=== PATIENT | male | born 1960 | race African-American/Black ===

== ENCOUNTER 2016-11-10 16:56 | Emergency (ER) | payer MEDICAID ==
[~2016-11-10] VITALS: Ht 193 cm; Wt 113.4 kg
[~2016-11-10 16:56] MED LIST: ADVAIR 500-501 EACH INH; ALBUTEROL SULF8.5 GM INH; AMLODIPINE BESY10 MG ORAL; ATROVENT HFA12.9 GM INH; AZITHROMYCIN250 MG ORAL; AZITHROMYCIN250 MG PO; BENTYL10 MG ORAL; CIPRO500 MG PO; CYCLOBENZAPRINE10 MG ORAL; ETODOLAC500 MG PO; FLOVENT2 PUFF2 INH; GUAIFENESIN-CO118 M1 ORAL; GUIATUSS AC SY120 ML ORAL; IBUPROFEN600 MG ORAL; MEDROL DOSEPAK4 MG ORAL; NAPROSYN500 M1 ORAL; NORCO 5-325 TA1 EACH ORAL; PREDNISONE20 MG ORAL; PREDNISONE20 MG PO; PREDNISONE50 MG ORAL; PROAIR HFA8.5 GM INH; PROMETHAZI6.25 MG/1 ORAL; PROMETHAZINE-C118 M1 ORAL; SINGULAIR10 MG ORAL; SYMBICORT 80-10.2 G1 IH; ZANTAC150 MG ORAL; ZOFRAN ODT4 MG ORAL; [UNRECOGNIZED DRUG - REMARK]
[2016-11-10 18:30] VITALS: BP 129/76
[2016-11-10 18:53] LABS: ALANINE AMINOTRANSFERASE 46 U/L (3-41); ALBUMIN/GLOBULIN RATIO 1.3 (1.0-2.7); ANION GAP 17 (5-15); ASPARTATE AMINO TRANSFERASE 28 U/L (5-40); BASOPHILS % (AUTO) 2.8 % (0.0-2.0); CALCIUM 10.2 mg/dL (8.6-10.2); CARBON DIOXIDE 28 mEQ/L (20-30); CHLORIDE 94 mEQ/L (98-107); CREATININE 1.2 mg/dL (0.7-1.2); EOSINOPHILS % (AUTO) 5.5 % (0.0-3.0); GLOMERULAR FILTRATION RATE > 60 mL/min (>60); HEMOLYSIS 6; LIPASE 38 U/L (< 60); LYMPHOCYTES % (AUTO) 40.6 % (20.0-45.0); MEAN CORPUSCULAR HEMOGLOBIN 30.3 PG (27.0-31.0); MEAN CORPUSCULAR HGB CONC 33.1 G/DL (32.0-36.0); MEAN CORPUSCULAR VOLUME 91 FL (80-99); MEAN PLATELET VOLUME 8.8 FL (6.5-10.1); MONOCYTES % (AUTO) 8.7 % (1.0-10.0); NEUTROPHILS % (AUTO) 42.4 % (45.0-75.0); PLATELET COUNT 259 K/UL (150-450); POTASSIUM 3.5 mEQ/L (3.4-4.9); RED BLOOD COUNT 5.28 M/UL (4.70-6.10); RED CELL DISTRIBUTION WIDTH 11.3 % (11.6-14.8); SODIUM 139 mEQ/L (135-145); TOTAL PROTEIN 7.9 g/dL (6.6-8.7); WHITE BLOOD COUNT 6.7 K/UL (4.8-10.8)
[2016-11-10 19:09] LABS: APPEARANCE,URINE CLEAR; KETONES,URINE NEGATIVE (NEGATIVE); LEUKOCYTE ESTERASE ,URINE 1+ (NEGATIVE); NITRITE,URINE NEGATIVE (NEGATIVE); PH,URINE 6 (4.5-8.0); PROTEIN,URINE 1+ (NEGATIVE); UROBILINOGEN,URINE NORMAL MG/DL (0.0-1.0)
[2016-11-10 19:47] LABS: BACTERIA,URINE FEW /HPF; RBC,URINE 0-2 /HPF (0 - 0)
[2016-11-10] MEDS ORDERED: REGLAN10 MG ORAL (19:50)
[2016-11-10 20:09] VITALS: BP 118/74
[2016-11-10 20:10] VITALS: BP 118/74
--- NOTE | 2016-11-11 13:30 | Emergency Room Report ---
History of Present Illness General Chief Complaint: General Complaint Source: Patient Present Illness HPI The patient is a 56-year-old male presenting for nausea, vomiting, and diarrhea which began 3 days prior. The patient was seen in this emergency department and diagnosed with gastroenteritis. The patient states that he ate doughnuts which had mold growing on them by mistake and then developed these symptoms. The patient was discharged home with a prescription for Zofran and Mylanta which he states have mildly been working. The patient does state that the diarrhea and vomiting are decreasing day by day. The patient now describes abdominal pain as an 8/10 dull ache and only occurs with either vomiting or diarrhea. The patient denies fever, chills, shortness of breath, chest pain, dizziness, fatigue, melena, hematochezia, hematemesis Allergies: Uncoded Allergies: Dye (Adverse Reaction, Intermediate, Shortness of Breath, 04/24/13) Patient History Past Medical History: see triage record Pertinent Family History: none Reviewed Nursing Documentation: PMH: Agreed, PSxH: Agreed Nursing Documentation-PMH Past Medical History: No History, Except For Hx Hypertension: Yes Hx Asthma: Yes Hx Diabetes: Yes Review of Systems All Other Systems: negative except mentioned in HPI Physical Exam Vital Signs Date Time Temp Pulse Resp B/P Pulse Ox O2 Delivery O2 Flow Rate FiO2 11/10/16 17:38 98.2 85 19 129/76 99 Room Air Sp02 EP Interpretation: reviewed, normal General Appearance: no apparent distress, alert, GCS 15, non-toxic Head: normocephalic, atraumatic Eyes: bilateral eye PERRL, bilateral eye normal inspection ENT: hearing grossly normal, normal pharynx, no angioedema, normal voice Neck: full range of motion, supple/symm/no masses Respiratory: chest non-tender, lungs clear, normal breath sounds, speaking full sentences Cardiovascular #1: regular rate, rhythm, no edema Cardiovascular #2: 2+ carotid (R), 2+ carotid (L), 2+ radial (R), 2+ radial (L) , 2+ dorsalis pedis (R), 2+ dorsalis pedis (L) Gastrointestinal: soft, non-distended, no guarding, no rebound, abnormal bowel sounds - hyperactive, tenderness - epigastric Rectal: deferred Genitourinary: normal inspection, no CVA tenderness Musculoskeletal: back normal, gait/station normal, normal range of motion, non- tender Neurologic: alert, oriented x3, responsive, motor strength/tone normal, sensory intact, speech normal Psychiatric: judgement/insight normal, memory normal, mood/affect normal, no suicidal/homicidal ideation Reflexes: 3+ bicep (R), 3+ bicep (L), 3+ tricep (R), 3+ tricep (L), 3+ knee (R) , 3+ knee (L) Skin: normal color, no rash, warm/dry, well hydrated Lymphatic: no adenopathy Medical Decision Making PA Attestation Dr. Beavers is my supervising physician. Patient management was discussed with my supervising physician Diagnostic Impression: Primary Impression: Gastroenteritis ER Course The patient is a 56-year-old male presenting for nausea, vomiting, and diarrhea which began 3 days prior. Differential diagnoses considered include but not limited to gastroenteritis, pancreatitis, appendicitis, UTI PE: Vitals WNL. NAD. Abdomen: Normal appearance. Non distended. No ecchymosis. No McBurney point tenderness. No guarding. There are hyperactive bowel sounds and epigastric tenderness to palpation No CVA tenderness Labs: CBC and CMP are unremarkable. No leukocytosis or electrolyte abnormality. Urinalysis unremarkable The patient was given IV fluids and Zofran and is feeling better. The patient will be discharged home and Zofran will be changed to Reglan. ER precautions are given. Laboratory Tests Test 11/10/16 18:20 11/10/16 18:40 White Blood Count 6.7 K/UL (4.8-10.8) Red Blood Count 5.28 M/UL (4.70-6.10) Hemoglobin 16.0 G/DL (14.2-18.0) Hematocrit 48.2 % (42.0-52.0) Mean Corpuscular Volume 91 FL (80-99) Mean Corpuscular Hemoglobin 30.3 PG (27.0-31.0) Mean Corpuscular Hemoglobin Concent 33.1 G/DL (32.0-36.0) Red Cell Distribution Width 11.3 % (11.6-14.8) L Platelet Count 259 K/UL (150-450) Mean Platelet Volume 8.8 FL (6.5-10.1) Neutrophils (%) (Auto) 42.4 % (45.0-75.0) L Lymphocytes (%) (Auto) 40.6 % (20.0-45.0) Monocytes (%) (Auto) 8.7 % (1.0-10.0) Eosinophils (%) (Auto) 5.5 % (0.0-3.0) H Basophils (%) (Auto) 2.8 % (0.0-2.0) H Sodium Level 139 mEQ/L (135-145) Potassium Level 3.5 mEQ/L (3.4-4.9) Chloride Level 94 mEQ/L (98-107) L Carbon Dioxide Level 28 mEQ/L (20-30) Anion Gap 17 (5-15) H Blood Urea Nitrogen 14 mg/dL (7-23) Creatinine 1.2 mg/dL (0.7-1.2) Estimate Glomerular Filtration Rate > 60 mL/min (>60) Glucose Level 179 mg/dL (74-106) H Calcium Level 10.2 mg/dL (8.6-10.2) Total Bilirubin 0.2 mg/dL (0.0-1.2) Aspartate Amino Transferase (AST) 28 U/L (5-40) Alanine Aminotransferase (ALT) 46 U/L (3-41) H Alkaline Phosphatase 79 U/L (40-129) Total Protein 7.9 g/dL (6.6-8.7) Albumin 4.6 g/dL (3.5-5.2) Globulin 3.3 g/dL Albumin/Globulin Ratio 1.3 (1.0-2.7) Lipase 38 U/L (< 60) Urine Color Yellow Urine Appearance Clear Urine pH 6 (4.5-8.0) Urine Specific [place] 1.015 (1.005-1.035) Urine Protein 1+ (NEGATIVE) H Urine Glucose (UA) Negative (NEGATIVE) Urine Ketones Negative (NEGATIVE) Urine Occult Blood Negative (NEGATIVE) Urine Nitrite Negative (NEGATIVE) Urine Bilirubin Negative (NEGATIVE) Urine Urobilinogen Normal MG/DL (0.0-1.0) Urine Leukocyte Esterase 1+ (NEGATIVE) H Urine RBC 0-2 /HPF (0 - 0) H Urine WBC 2-4 /HPF (0 - 0) Urine Squamous Epithelial Cells None /LPF (NONE/OCC) Urine Bacteria Few /HPF (NONE) Lab Results Impression CBC and CMP are unremarkable. No leukocytosis or electrolyte abnormality. Urinalysis unremarkable Last Vital Signs Date Time Temp Pulse Resp B/P Pulse Ox O2 Delivery O2 Flow Rate FiO2 11/10/16 20:10 98.2 80 20 118/74 99 Room Air Status: improved Disposition: HOME, SELF-CARE Condition: Improved Scripts Metoclopramide Hcl* (REGLAN*) 10 Mg Tablet 10 MG ORAL THREE TIMES A DAY, #15 TAB Prov: ELOINA BULL 11/10/16 Patient Instructions: Viral Gastroenteritis, Adult Additional Instructions: I discussed my findings with the patient. All questions and concerns have been answered. Treatment and medication compliance have been addressed. I advised the patient that they need to follow up with PMD in 3-5 days. Return to ED if symptoms worsen, new symptoms arise, or if needed for any reason. Patient verbalized understanding of discharge instructions. ELOINA BULL Nov 11, 2016 13:30
== END 2016-11-10 20:11 | disposition home or self-care (01) ==
LOC: EMR 18:00
DX: K52.9 Noninfective gastroenteritis and colitis, unspecified (principal); R11.2 Nausea with vomiting, unspecified; R19.7 Diarrhea, unspecified; R10.9 Unspecified abdominal pain; I10 Essential (primary) hypertension; E11.9 Type 2 diabetes mellitus without complications; J45.909 Unspecified asthma, uncomplicated
CPT/HCPCS: 36415; 80053; 81003; 83690; 85025; 96361; 96374; 99284; J2405

== ENCOUNTER 2016-11-14 20:09 | Emergency (ER) | payer MEDICAID ==
[~2016-11-14] VITALS: Ht 193 cm; Wt 113.4 kg
[~2016-11-14 20:09] MED LIST changes: +REGLAN10 MG ORAL
[2016-11-14 21:14] VITALS: BP 139/89
[2016-11-14 21:29] LABS: BASOPHILS % (AUTO) 2.3 % (0.0-2.0); EOSINOPHILS % (AUTO) 6.5 % (0.0-3.0); LYMPHOCYTES % (AUTO) 39.9 % (20.0-45.0); MEAN CORPUSCULAR HGB CONC 33.1 G/DL (32.0-36.0); MEAN CORPUSCULAR VOLUME 91 FL (80-99); MEAN PLATELET VOLUME 8.8 FL (6.5-10.1); MONOCYTES % (AUTO) 11.2 % (1.0-10.0); NEUTROPHILS % (AUTO) 40.2 % (45.0-75.0); PLATELET COUNT 240 K/UL (150-450); RED CELL DISTRIBUTION WIDTH 11.9 % (11.6-14.8); WHITE BLOOD COUNT 7.1 K/UL (4.8-10.8)
[2016-11-14 21:54] LABS: ALANINE AMINOTRANSFERASE 43 U/L (3-41); ALBUMIN/GLOBULIN RATIO 1.4 (1.0-2.7); ANION GAP 12 (5-15); ASPARTATE AMINO TRANSFERASE 26 U/L (5-40); CARBON DIOXIDE 29 mEQ/L (20-30); CHLORIDE 96 mEQ/L (98-107); CREATININE 1.2 mg/dL (0.7-1.2); GLOMERULAR FILTRATION RATE > 60 mL/min (>60); HEMOLYSIS 11; POTASSIUM 3.2 mEQ/L (3.4-4.9); SODIUM 137 mEQ/L (135-145); TOTAL PROTEIN 6.9 g/dL (6.6-8.7)
[2016-11-14] MEDS ORDERED: IMODIUM2 MG ORAL (22:28)
[2016-11-14 22:48] VITALS: BP 129/80
--- NOTE | 2016-11-15 09:32 | Diagnostic Imaging Report ---
Indication: Abdominal pain Technique: Continuous helical transaxial imaging of the abdomen and pelvis was obtained from the lung bases to the pubic symphysis. No intravenous contrast was administered. Coronal 2-D reformats were also obtained. Total Dose length Product (DLP): [address] Dose Index Volume (CTDIvol): 19 mGy Comparison: none Findings: There is small mass projecting off the posterior aspect of the right kidney. This is nonspecific on noncontrast imaging and could be cystic or solid. Arterial vascular consultations are present. Tiny gallstone noted. The liver is low in attenuation. Lung bases are clear. No free fluid seen. Appendix is normal. Few diverticula noted in the sigmoid colon. Impression: Fatty liver Gallstone Nonspecific bilateral renal masses. These could be cystic or solid and incompletely assessed on the current study done without contrast Normal appendix Diverticulosis of the colon Dr. Diana has communicated the preliminary results to the Emergency Department. There are no significant discrepancies. The CT scanner at [facility] is accredited by the [employer] and the scans are performed using protocols designed to limit radiation exposure to as low as reasonably achievable to attain images of sufficient resolution adequate for diagnostic evaluation.
--- NOTE | 2016-11-15 23:05 | Emergency Room Report ---
History of Present Illness General Chief Complaint: Abdominal Pain Source: Patient Present Illness HPI The pt is a 56 yo M who is presenting for the 3rd time in one week for nausea, vomiting, abdominal pain, and diarrhea. The pt states he ate old doughnuts one week prior and developed this symptoms afterwords. The pt states he has 9/10 dull abdominal pain with diarrhea and vomiting. The pt states the episodes of vomiting and diarrhea are decreasing daily and he has had two episodes of diarrhea today with no vomiting. The pt states he is able to tolerate liquids and foods but this seems to trigger the symptoms. The pt denies melena, hematochezia, hematemesis, fever, chills, FLOWERS, myalgia, fatigue, dizziness, SOB, CP Allergies: Uncoded Allergies: Dye (Adverse Reaction, Intermediate, Shortness of Breath, 04/24/13) Patient History Past Medical History: see triage record Pertinent Family History: none Reviewed Nursing Documentation: PMH: Agreed, PSxH: Agreed Nursing Documentation-PMH Past Medical History: No History, Except For Hx Hypertension: Yes Hx Asthma: Yes Hx Diabetes: Yes Review of Systems All Other Systems: negative except mentioned in HPI Physical Exam Vital Signs Date Time Temp Pulse Resp B/P Pulse Ox O2 Delivery O2 Flow Rate FiO2 11/14/16 20:31 97.7 87 14 147/99 100 Room Air Sp02 EP Interpretation: reviewed, normal General Appearance: no apparent distress, alert, GCS 15, non-toxic Head: normocephalic, atraumatic Eyes: bilateral eye PERRL, bilateral eye normal inspection ENT: hearing grossly normal, normal pharynx, no angioedema, normal voice Respiratory: chest non-tender, lungs clear, normal breath sounds, speaking full sentences Cardiovascular #1: regular rate, rhythm, no edema Gastrointestinal: soft, non-distended, no guarding, no rebound, abnormal bowel sounds - hyperactive, tenderness - epigastric Genitourinary: normal inspection, no CVA tenderness Musculoskeletal: back normal, gait/station normal, normal range of motion, non- tender Neurologic: alert, oriented x3, responsive, motor strength/tone normal, sensory intact, speech normal Psychiatric: judgement/insight normal, memory normal, mood/affect normal, no suicidal/homicidal ideation Skin: normal color, no rash, warm/dry, well hydrated Medical Decision Making PA Attestation Dr. Benz is my supervising physician. Patient management was discussed with my supervising physician Diagnostic Impression: Primary Impression: Gastroenteritis ER Course The pt is a 56 yo M who is presenting for the 3rd time in one week for nausea, vomiting, abdominal pain, and diarrhea. Differential diagnoses considered include but not limited to gastroenteritis, pancreatitis, appendicitis, cholecystitis PE: Vitals WNL. NAD. Abdomen: Normal appearance. Non distended. No ecchymosis. Hyperactive BS. +TTP over epigastric region. No McBurney point tenderness. No guarding. No CVA tenderness CT abd/pelvis done without contrast as patient is allergic. Nonspecific bilateral renal masses. Normal appendix Diverticulosis of the colon These results were discussed with patient and the patient will call tomorrow for finalized radiology results. Pt given IV fluids and zofran and is feeling better. Because the symptoms have persisted, the pt is given prescription for Lomotil and will FU with PMD. Pt told he needs to FU with GI if symptoms persist. Laboratory Tests Test 11/14/16 21:13 White Blood Count 7.1 K/UL (4.8-10.8) Red Blood Count 5.20 M/UL (4.70-6.10) Hemoglobin 15.6 G/DL (14.2-18.0) Hematocrit 47.2 % (42.0-52.0) Mean Corpuscular Volume 91 FL (80-99) Mean Corpuscular Hemoglobin 30.0 PG (27.0-31.0) Mean Corpuscular Hemoglobin Concent 33.1 G/DL (32.0-36.0) Red Cell Distribution Width 11.9 % (11.6-14.8) Platelet Count 240 K/UL (150-450) Mean Platelet Volume 8.8 FL (6.5-10.1) Neutrophils (%) (Auto) 40.2 % (45.0-75.0) L Lymphocytes (%) (Auto) 39.9 % (20.0-45.0) Monocytes (%) (Auto) 11.2 % (1.0-10.0) H Eosinophils (%) (Auto) 6.5 % (0.0-3.0) H Basophils (%) (Auto) 2.3 % (0.0-2.0) H Sodium Level 137 mEQ/L (135-145) Potassium Level 3.2 mEQ/L (3.4-4.9) L Chloride Level 96 mEQ/L (98-107) L Carbon Dioxide Level 29 mEQ/L (20-30) Anion Gap 12 (5-15) Blood Urea Nitrogen 18 mg/dL (7-23) Creatinine 1.2 mg/dL (0.7-1.2) Estimate Glomerular Filtration Rate > 60 mL/min (>60) Glucose Level 275 mg/dL (74-106) H Calcium Level 9.0 mg/dL (8.6-10.2) Total Bilirubin 0.3 mg/dL (0.0-1.2) Aspartate Amino Transferase (AST) 26 U/L (5-40) Alanine Aminotransferase (ALT) 43 U/L (3-41) H Alkaline Phosphatase 68 U/L (40-129) Total Protein 6.9 g/dL (6.6-8.7) Albumin 4.1 g/dL (3.5-5.2) Globulin 2.8 g/dL Albumin/Globulin Ratio 1.4 (1.0-2.7) Lab Results Impression CBC, CMP unremarkable CT/MRI/US Diagnostic Results CT/MRI/US Diagnostic Results : Imaging Test Ordered: CT abd/pelvis Impression Nonspecific bilateral renal masses. These could be cystic or solid and incompletely assessed on the current study done without contrast Normal appendix Diverticulosis of the colon Last Vital Signs Date Time Temp Pulse Resp B/P Pulse Ox O2 Delivery O2 Flow Rate FiO2 11/14/16 22:48 97.9 79 15 129/80 100 Room Air Status: improved Disposition: HOME, SELF-CARE Condition: Improved Scripts Loperamide HCl (Loperamide) 2 Mg Capsule 2 MG ORAL Q4H, #12 CAP 0 Refills Prov: ELOINA BULL 11/14/16 [facility] Patient Instructions: Nausea and Vomiting, Adult, Rehydration, Adult, Food Choices to Help Relieve Diarrhea, Adult Additional Instructions: I discussed my findings with the patient. All questions and concerns have been answered. Treatment and medication compliance have been addressed. I advised the patient that they need to follow up with PMD in 3-5 days. Return to ED if symptoms worsen, new symptoms arise, or if needed for any reason. Patient verbalized understanding of discharge instructions. The patient is advised he needs to followup with primary care physician and possibly GI specialist if symptoms continue ELOINA BULL Nov 15, 2016 23:05
== END 2016-11-14 22:49 | disposition home or self-care (01) ==
LOC: EMR 20:48
DX: K52.9 Noninfective gastroenteritis and colitis, unspecified (principal); E11.9 Type 2 diabetes mellitus without complications; J45.909 Unspecified asthma, uncomplicated; I10 Essential (primary) hypertension
CPT/HCPCS: 36415; 74176; 80053; 85025; 96374

== ENCOUNTER 2016-11-26 20:14 | Emergency (ER) | payer MEDICAID ==
[~2016-11-26] VITALS: Ht 193 cm; Wt 108.9 kg
[~2016-11-26 20:14] MED LIST changes: +IMODIUM2 MG ORAL
--- NOTE | 2016-11-26 20:36 | Emergency Room Report ---
History of Present Illness General Chief Complaint: Abdominal Pain Source: Patient Present Illness HPI Patient presents with left upper quadrant pain. He was seen for this on November 14. Had a CAT scan that was basically unremarkable at that time. He was given medication. He was told to followup with his GI specialist. His doctor is unavailable at to do so without medical records and there's been some delay in getting these. This is the copy of the CT: Impression: Fatty liver Gallstone Nonspecific bilateral renal masses. These could be cystic or solid and incompletely assessed on the current study done without contrast Normal appendix Diverticulosis of the colon The patient states the pain is persisting. He's had some vomiting. Denies any fevers or chills. There's been no coffee grounds or blood. He denies any melena. There is no dysuria. In addition to that he is complaining of some sharp pains in his heart. The patient is a diabetic. He claims that he's lost about 10 pounds is not eating well at this time. Allergies: Uncoded Allergies: Dye (Adverse Reaction, Intermediate, Shortness of Breath, 04/24/13) Patient History Past Medical History: see triage record Social History: Denies: alcohol use, drug use, smoking Social History Narrative at home Reviewed Nursing Documentation: PMH: Agreed, PSxH: Agreed Nursing Documentation-PMH Past Medical History: No History, Except For Hx Hypertension: Yes Hx Asthma: Yes Hx Diabetes: Yes Review of Systems All Other Systems: negative except mentioned in HPI Physical Exam Vital Signs Date Time Temp Pulse Resp B/P Pulse Ox O2 Delivery O2 Flow Rate FiO2 11/26/16 20:19 97.5 84 14 124/72 100 Room Air Sp02 EP Interpretation: reviewed, normal General Appearance: well appearing, no apparent distress, GCS 15 Head: normocephalic Eyes: bilateral eye PERRL, bilateral eye normal inspection ENT: moist mucus membranes Neck: supple Respiratory: lungs clear, normal breath sounds Cardiovascular #1: regular rate, rhythm Cardiovascular #2: 2+ radial (R) Gastrointestinal: normal inspection, normal bowel sounds, no mass, non- distended, no guarding, no rebound, tenderness - epigastric Musculoskeletal: back normal, gait/station normal, normal range of motion Neurologic: alert, oriented x3, grossly normal Psychiatric: mood/affect normal Skin: normal inspection, warm/dry Medical Decision Making Diagnostic Impression: Primary Impression: abdominal pain Additional Impressions: Hypokalemia Chest pain Qualified Codes: R07.9 - Chest pain, unspecified ER Course Patient with continued abdominal pain post normal CT 11/14. DDx: gastritis, diverticulitis, PUD, pancreatitis, brian amongst others. Also with sharp chest pain which needs evaluation. Labs, EKG ordered. Will treat with IV hydration, zofran and pepcid. Ct has been reviewed. Labs sig for normal WBC, lipase and UA. Potassium slightly low. Improved with treatment. Chest pain atypical. No medical emergency at this time. Given documents and labs. Stable for outpatient observation and treatment. Discussed need for GI evaluation. Laboratory Tests Test 11/26/16 20:32 11/26/16 20:40 Urine Color Pale yellow Urine Appearance Clear Urine pH 6 (4.5-8.0) Urine Specific [place] 1.015 (1.005-1.035) Urine Protein Negative (NEGATIVE) Urine Glucose (UA) 2+ (NEGATIVE) H Urine Ketones Negative (NEGATIVE) Urine Occult Blood Negative (NEGATIVE) Urine Nitrite Negative (NEGATIVE) Urine Bilirubin Negative (NEGATIVE) Urine Urobilinogen Normal MG/DL (0.0-1.0) Urine Leukocyte Esterase Negative (NEGATIVE) White Blood Count 7.1 K/UL (4.8-10.8) Red Blood Count 5.13 M/UL (4.70-6.10) Hemoglobin 16.2 G/DL (14.2-18.0) Hematocrit 46.8 % (42.0-52.0) Mean Corpuscular Volume 91 FL (80-99) Mean Corpuscular Hemoglobin 31.6 PG (27.0-31.0) H Mean Corpuscular Hemoglobin Concent 34.6 G/DL (32.0-36.0) Red Cell Distribution Width 11.7 % (11.6-14.8) Platelet Count 271 K/UL (150-450) Mean Platelet Volume 8.6 FL (6.5-10.1) Neutrophils (%) (Auto) 45.9 % (45.0-75.0) Lymphocytes (%) (Auto) 36.3 % (20.0-45.0) Monocytes (%) (Auto) 9.7 % (1.0-10.0) Eosinophils (%) (Auto) 6.0 % (0.0-3.0) H Basophils (%) (Auto) 2.1 % (0.0-2.0) H Sodium Level 139 mEQ/L (135-145) Potassium Level 3.1 mEQ/L (3.4-4.9) L Chloride Level 94 mEQ/L (98-107) L Carbon Dioxide Level 31 mEQ/L (20-30) H Anion Gap 14 (5-15) Blood Urea Nitrogen 16 mg/dL (7-23) Creatinine 1.2 mg/dL (0.7-1.2) Estimate Glomerular Filtration Rate > 60 mL/min (>60) Glucose Level 189 mg/dL (74-106) H Calcium Level 9.7 mg/dL (8.6-10.2) Total Bilirubin 0.2 mg/dL (0.0-1.2) Aspartate Amino Transferase (AST) 27 U/L (5-40) Alanine Aminotransferase (ALT) 47 U/L (3-41) H Alkaline Phosphatase 77 U/L (40-129) Total Protein 7.9 g/dL (6.6-8.7) Albumin 4.8 g/dL (3.5-5.2) Globulin 3.1 g/dL Albumin/Globulin Ratio 1.5 (1.0-2.7) Lipase 44 U/L (< 60) EKG Diagnostic Results Rate: normal Rhythm: NSR ST Segments: no acute changes Rhythm Strip Diag. Results EP Interpretation: yes Rhythm: NSR, no PVC's, no ectopy Last Vital Signs Date Time Temp Pulse Resp B/P Pulse Ox O2 Delivery O2 Flow Rate FiO2 11/26/16 22:51 97.5 74 16 115/62 100 Room Air Status: improved Disposition: HOME, SELF-CARE Condition: Improved Scripts Ondansetron Odt* (ZOFRAN ODT*) 4 Mg Tab.rapdis 4 MG ORAL Q8H Y for Nausea & Vomiting, #10 TAB 1 Refill Prov: Ramsey Mims M.D. 11/26/16 Tramadol Hcl* (ULTRAM*) 50 Mg Tablet 50 MG ORAL Q6H Y for For Pain, #14 TAB 0 Refills Prov: Ramsey Mims M.D. 11/26/16 Famotidine (PEPCID) 20 Mg Tablet 20 MG ORAL DAILY, #30 TAB 0 Refills Prov: Ramsey Mims M.D. 11/26/16 Ramsey Mims M.D. Nov 26, 2016 20:36
[2016-11-26] MEDS ORDERED: Famotidine 20 MG/ 2ML VIAL IVP ONE (20:45)
[2016-11-26 20:58] LABS: BASOPHILS % (AUTO) 2.1 % (0.0-2.0); LYMPHOCYTES % (AUTO) 36.3 % (20.0-45.0); MEAN CORPUSCULAR HEMOGLOBIN 31.6 PG (27.0-31.0); MEAN CORPUSCULAR HGB CONC 34.6 G/DL (32.0-36.0); MEAN CORPUSCULAR VOLUME 91 FL (80-99); MEAN PLATELET VOLUME 8.6 FL (6.5-10.1); MONOCYTES % (AUTO) 9.7 % (1.0-10.0); NEUTROPHILS % (AUTO) 45.9 % (45.0-75.0); PLATELET COUNT 271 K/UL (150-450); RED BLOOD COUNT 5.13 M/UL (4.70-6.10); RED CELL DISTRIBUTION WIDTH 11.7 % (11.6-14.8); WHITE BLOOD COUNT 7.1 K/UL (4.8-10.8)
[2016-11-26 21:06] LABS: APPEARANCE,URINE CLEAR; KETONES,URINE NEGATIVE (NEGATIVE); LEUKOCYTE ESTERASE ,URINE NEGATIVE (NEGATIVE); NITRITE,URINE NEGATIVE (NEGATIVE); PH,URINE 6 (4.5-8.0); PROTEIN,URINE NEGATIVE (NEGATIVE); UROBILINOGEN,URINE NORMAL MG/DL (0.0-1.0)
[2016-11-26 21:29] LABS: ALANINE AMINOTRANSFERASE 47 U/L (3-41); ALBUMIN/GLOBULIN RATIO 1.5 (1.0-2.7); ANION GAP 14 (5-15); ASPARTATE AMINO TRANSFERASE 27 U/L (5-40); CALCIUM 9.7 mg/dL (8.6-10.2); CARBON DIOXIDE 31 mEQ/L (20-30); CHLORIDE 94 mEQ/L (98-107); CREATININE 1.2 mg/dL (0.7-1.2); GLOMERULAR FILTRATION RATE > 60 mL/min (>60); HEMOLYSIS 3; LIPASE 44 U/L (< 60); POTASSIUM 3.1 mEQ/L (3.4-4.9); SODIUM 139 mEQ/L (135-145); TOTAL PROTEIN 7.9 g/dL (6.6-8.7)
[2016-11-26 21:38] VITALS: BP 111/58
[2016-11-26] MEDS ORDERED: ZOFRAN ODT4 MG ORAL (22:32)
[2016-11-26] MEDS ORDERED: TRAMADOL HCL50 MG ORAL (22:32)
[2016-11-26] MEDS ORDERED: PEPCID20 MG ORAL (22:32)
[2016-11-26 22:51] VITALS: BP 115/62
--- NOTE | 2017-01-03 03:15 | Cardiology Report ---
APPROVED REPORT EKG Measurement Heart [id number] Normal sinus rhythm Nonspecific T wave abnormality Abnormal ECG
== END 2016-11-26 22:54 | disposition home or self-care (01) ==
LOC: EMR 20:52
DX: R10.12 Left upper quadrant pain (principal); R07.9 Chest pain, unspecified; E87.6 Hypokalemia; E11.9 Type 2 diabetes mellitus without complications; I10 Essential (primary) hypertension; J45.909 Unspecified asthma, uncomplicated
CPT/HCPCS: 36415; 80053; 81003; 83690; 85025; 93005; 96374; 96375; 99284; J2405; S0028

== ENCOUNTER 2017-02-01 17:03 | Emergency (ER) | payer MEDICAID ==
[~2017-02-01] VITALS: Ht 193 cm; Wt 111.6 kg
[~2017-02-01 17:03] MED LIST changes: +PEPCID20 MG ORAL; +TRAMADOL HCL50 MG ORAL
[2017-02-01] MEDS ORDERED: HYDROCHLOROTH12.5 M2 ORAL (17:24)
[2017-02-01 17:36] VITALS: BP 144/88
[2017-02-01] MEDS ORDERED: IBUPROFEN600 MG ORAL (18:50)
[2017-02-01] MEDS ORDERED: AMOXICILLIN500 MG ORAL (18:50)
[2017-02-01 19:04] VITALS: BP 141/84
--- NOTE | 2017-02-01 19:04 | Emergency Room Report ---
History of Present Illness General Chief Complaint: Multiple Trauma/Fall Source: Patient Present Illness HPI Patient is a 57-year-old male presented after a fall reportedly at [facility] the patient stated he fell and hit the back of his head as well as his low back. Patient fell from a seated position. He reports having a headache as well as some left-sided neck pain. Pain to the low back and the left side. The patient was complaining of a mild headache and dizziness. He denied loss of consciousness. Allergies: Uncoded Allergies: Dye (Adverse Reaction, Intermediate, Shortness of Breath, 04/24/13) Patient History Past Medical History: see triage record Reviewed Nursing Documentation: PMH: Agreed, PSxH: Agreed Nursing Documentation-PMH Hx Hypertension: Yes Hx Asthma: Yes Hx Diabetes: Yes Review of Systems All Other Systems: negative except mentioned in HPI Physical Exam Vital Signs Date Time Temp Pulse Resp B/P Pulse Ox O2 Delivery O2 Flow Rate FiO2 02/01/17 17:17 97.9 95 18 146/93 97 02/01/17 17:36 Room Air Sp02 EP Interpretation: reviewed, normal General Appearance: normal inspection, well appearing, no apparent distress, alert, GCS 15 Head: atraumatic ENT: hearing grossly normal, normal voice, other - nasal swelling Neck: normal inspection, full range of motion, supple, no bony tend, tender lateral Respiratory: normal inspection, lungs clear, normal breath sounds, no respiratory distress, no retraction, no wheezing Cardiovascular #1: regular rate, rhythm, no edema Gastrointestinal: normal inspection, normal bowel sounds, non tender, soft, no guarding, no hernia Genitourinary: no CVA tenderness Musculoskeletal: normal inspection, back normal, normal range of motion Neurologic: normal inspection, alert, oriented x3, responsive, 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 Differential diagnosis included was not limited to neck fracture, CVA, close head injury, syncopal episode, basilar ischemia. The patient was noted to have CT the head read by radiology without evident acute intracranial hemorrhage there is markedly the maxillary sinus disease and post surgical changes noted . The patient was advised to followup with ENT due to severe sinus disease. The patient is advised to follow up with primary care doctor in 1-2 days. Patient is advised to return if any worsening condition or if any changes in status that are concerning. Last Vital Signs Date Time Temp Pulse Resp B/P Pulse Ox O2 Delivery O2 Flow Rate FiO2 02/01/17 17:36 97.7 91 16 144/88 98 Room Air Status: improved Disposition: HOME, SELF-CARE Condition: Stable Scripts Ibuprofen* (MOTRIN*) 600 Mg Tablet 600 MG ORAL Q8H Y for For Pain, #30 TAB 0 Refills Prov: Wilmar Beavers 02/01/17 Amoxicillin* (AMOXIL*) 500 Mg Capsule 500 MG ORAL THREE TIMES A DAY, #21 CAP Prov: Wilmar Beavers 02/01/17 Patient Instructions: Head Injury, Adult, Lumbosacral Strain, Sinusitis, Adult Wilmar Beavers Feb 01, 2017 19:04
[2017-02-01 19:06] VITALS: BP 141/84
--- NOTE | 2017-02-02 10:53 | Diagnostic Imaging Report ---
Indication: PAIN Technique: 3 views of the lumbar spine Comparison: None Findings:There is minimal lumbar scoliotic deformity, may be an artifact of positioning. Bony alignment is otherwise normal. Vertebral body heights are preserved. Disc spaces are preserved. Pedicles are intact. Sacral arches are preserved. Sacroiliac joint spaces are preserved. Impression:Negative
--- NOTE | 2017-02-02 14:57 | Diagnostic Imaging Report ---
Indication: PAIN, headache, status post fall Technique: Continuous helical CT scanning of the head was performed without intravenous contrast material. Axial and coronal 5 mm sections were generated. Radiation dose was minimized using automated exposure control Dose: Total Dose Length Product - DLP [address] Dose Index - CTDIvol(s) 70.38 mGy. Comparison: 09/14/2014 Findings: The ventricular system is normal in size and configuration. There is no shift of midline structures. No abnormal extra-axial fluid collections are noted. There is no evidence of intracerebral bleeding. No other abnormal high or low density areas are noted within the brain. Again demonstrated is evidence of extensive sinus and evidence of prior sinus surgery. There is also evidence of prior supraorbital trauma and surgical repair. Impression: Negative for acute intracranial bleed or mass effect Extensive sinus disease, also previously reported Evident of prior supraorbital surgery This agrees with the preliminary interpretation provided overnight by Dr. White The CT scanner at [facility] is accredited by the [employer] and the scans are performed using protocols designed to limit radiation exposure to as low as reasonably achievable to attain images of sufficient resolution adequate for diagnostic evaluation.
== END 2017-02-01 19:07 | disposition home or self-care (01) ==
LOC: EMR 18:00
DX: R51 Headache (principal); M54.2 Cervicalgia; R42 Dizziness and giddiness; M54.5 Low back pain; W19.XXXA Unspecified fall, initial encounter; Y92.511 Restaurant or cafe as the place of occurrence of the external cause; I10 Essential (primary) hypertension; E11.9 Type 2 diabetes mellitus without complications; J45.909 Unspecified asthma, uncomplicated
CPT/HCPCS: 70450; 72110; 99284

== ENCOUNTER 2017-11-10 22:28 | Emergency (ER) | payer MEDICAID ==
[~2017-11-10] VITALS: Ht 193 cm; Wt 111.6 kg
[~2017-11-10 22:28] MED LIST changes: +AMOXICILLIN500 MG ORAL; +HYDROCHLOROTH12.5 M2 ORAL
[2017-11-10 22:36] VITALS: BP 141/92
[2017-11-10 22:45] VITALS: BP 141/92
[2017-11-10] MEDS ORDERED: HYDROCODON-ACE1 EA15 ORAL (23:14)
[2017-11-10] MEDS ORDERED: ROBAXIN500 MG PO (23:14)
[2017-11-10] MEDS ORDERED: IBUPROFEN600 MG ORAL (23:14)
--- NOTE | 2017-11-10 23:14 | Emergency Room Report ---
History of Present Illness General Chief Complaint: Lower Back Pain or Injury Source: Patient Present Illness HPI Is a 57-year-old male with history of previous fall in January is an he sustained a small laminal tear of the lumbar spine. He beginning rehabilitation and recommended surgery. This was 5 months ago. He put it off. He was visiting family in [place]. He been over and felt a sharp pain in his back. Pain radiating down his right leg. He couldn't walk for 7 days because of the pain. He was taking muscle relaxant felt better. Denies any fever or chills. Denies any tetanus of bowel or urine. Maximal pain was 10 out of 10. Now 7/ 10. No trauma. No fever or chills. Allergies: Uncoded Allergies: Dye (Adverse Reaction, Intermediate, Shortness of Breath, 04/24/13) Patient History Past Medical History: see triage record, old chart reviewed Past Surgical History: none Pertinent Family History: none Social History: Denies: smoking Immunizations: other Reviewed Nursing Documentation: PMH: Agreed, PSxH: Agreed Nursing Documentation-PMH Hx Hypertension: Yes Hx Asthma: Yes Hx Diabetes: Yes Review of Systems Eye: Denies: eye pain, blurred vision ENT: Denies: ear pain, nose congestion, throat swelling Respiratory: Denies: cough, shortness of breath Cardiovascular: Denies: chest pain, palpitations Gastrointestinal: Denies: abdominal pain, diarrhea, nausea, vomiting Musculoskeletal: Reports: back pain, Denies: joint pain Skin: Denies: rash Neurological: Denies: headache, numbness Endocrine: Denies: increased thirst, increased urine Hematologic/Lymphatic: Denies: easy bruising All Other Systems: negative except mentioned in HPI Physical Exam Vital Signs Date Time Temp Pulse Resp B/P (MAP) Pulse Ox O2 Delivery O2 Flow Rate FiO2 11/10/17 22:36 97.5 80 16 141/92 98 Room Air vitals normal Sp02 EP Interpretation: reviewed, normal General Appearance: well appearing, no apparent distress, alert Head: normocephalic, atraumatic Eyes: bilateral eye PERRL, bilateral eye EOMI ENT: hearing grossly normal, normal pharynx Neck: full range of motion, supple, no meningismus Respiratory: chest non-tender, lungs clear, normal breath sounds Cardiovascular #1: regular rate, rhythm, no murmur Gastrointestinal: normal bowel sounds, non tender, no mass, no organomegaly, no bruit, non-distended Musculoskeletal: back normal, gait/station normal, normal range of motion Psychiatric: mood/affect normal Skin: warm/dry Medical Decision Making Diagnostic Impression: Primary Impression: Low back pain Qualified Codes: M54.41 - Lumbago with sciatica, right side ER Course Patient presents with lower back pain with radiation down the right leg. Based on clinical presentation, most likely herniated disc with sciatica. He will need another MRI. No evidence of cauda equina syndrome, spinal epidural abscess or neoplastic process. We'll discharge home. Last Vital Signs Date Time Temp Pulse Resp B/P (MAP) Pulse Ox O2 Delivery O2 Flow Rate FiO2 11/10/17 22:36 97.5 80 16 141/92 98 Room Air Status: improved Disposition: HOME, SELF-CARE Condition: Stable Scripts Methocarbamol* (ROBAXIN*) 500 Mg Tablet 500 MG PO TID, #30 TAB 0 Refills Prov: JEANNINE PAEZ M.D. 11/10/17 Ibuprofen* (MOTRIN*) 600 Mg Tablet 600 MG ORAL THREE TIMES A DAY, #30 TAB 0 Refills Prov: JEANNINE PAEZ M.D. 11/10/17 Hydrocodone/Acetaminophen 5-325* (HYDROCODONE/ACETAMINOPHEN 5-325*) 1 Each Tablet 1 TAB ORAL Q6H Y for For Pain, #30 TAB 0 Refills Prov: JEANNINE PAEZ M.D. 11/10/17 Additional Instructions: Followup with your Dr. in 7 days. Recommend another MRI. Return if symptom worsen. JEANNINE PAEZ M.D. Nov 10, 2017 23:14
== END 2017-11-10 23:20 | disposition home or self-care (01) ==
LOC: EMR 22:50
DX: M54.41 Lumbago with sciatica, right side (principal); J45.909 Unspecified asthma, uncomplicated; E11.9 Type 2 diabetes mellitus without complications; I10 Essential (primary) hypertension
CPT/HCPCS: 99283

== ENCOUNTER 2018-08-17 02:11 | Emergency (ER) | payer MEDICAID ==
[~2018-08-17] VITALS: Ht 193 cm; Wt 110.7 kg
[~2018-08-17 02:11] MED LIST changes: +HYDROCODON-ACE1 EA15 ORAL; +ROBAXIN500 MG PO
[2018-08-17 02:28] VITALS: BP 150/80
[2018-08-17] MEDS ORDERED: Dicyclomine HCl 10mg/5ml oral soln ORAL ONE (02:30)
[2018-08-17] MEDS ORDERED: Lidocaine 2% Visc 15ml soln ORAL ONE (02:30)
[2018-08-17] MEDS ORDERED: Mylanta II UD 30ml ORAL ONE (02:30)
[2018-08-17] MEDS ORDERED: RANITIDINE HCL150 MG ORAL (02:45)
[2018-08-17] MEDS ORDERED: DICYCLOMINE HCL10 MG PO (02:45)
[2018-08-17 02:49] VITALS: BP 150/80
--- NOTE | 2018-08-17 03:27 | Emergency Room Report ---
History of Present Illness General Chief Complaint: Abdominal Pain Source: Patient Present Illness HPI 58-year-old male presents ED complaining of abdominal pain. Started 2 days ago after eating a hotdog at a movie. States he shortly after started feeling cramping pain's abdomen. 8 out of 10, nonradiating. Denies chest pain or shortness of breath. Denies fevers or chills. Denies nausea or vomiting. Denies diarrhea. Tried [id number] medications without relief. No other aggravating relieving factors. Denies any other associated symptoms Allergies: Uncoded Allergies: Dye (Adverse Reaction, Intermediate, Shortness of Breath, 04/24/13) Patient History Past Medical History: DM, HTN, asthma Past Surgical History: none Pertinent Family History: none Social History: Denies: smoking, alcohol use, drug use Immunizations: UTD Reviewed Nursing Documentation: PMH: Agreed; PSxH: Agreed Nursing Documentation-PMH Hx Hypertension: Yes Hx Asthma: Yes Hx Diabetes: Yes - type 2 Review of Systems All Other Systems: negative except mentioned in HPI Physical Exam Vital Signs Date Time Temp Pulse Resp B/P (MAP) Pulse Ox O2 Delivery O2 Flow Rate FiO2 08/17/18 02:17 97.7 88 17 159/90 97 97.7 08/17/18 02:28 Room Air Sp02 EP Interpretation: reviewed, normal General Appearance: no apparent distress, alert, GCS 15, non-toxic Head: normocephalic, atraumatic Eyes: bilateral eye normal inspection, bilateral eye PERRL ENT: hearing grossly normal, normal pharynx, no angioedema, normal voice Neck: full range of motion, supple/symm/no masses Respiratory: chest non-tender, lungs clear, normal breath sounds, speaking full sentences Cardiovascular #1: regular rate, rhythm, no edema Cardiovascular #2: 2+ carotid (R), 2+ carotid (L), 2+ radial (R), 2+ radial (L) , 2+ dorsalis pedis (R), 2+ dorsalis pedis (L) Gastrointestinal: normal bowel sounds, non tender, soft, non-distended, no guarding, no rebound Rectal: deferred Genitourinary: normal inspection, no CVA tenderness Musculoskeletal: back normal, gait/station normal, normal range of motion, non- tender Neurologic: alert, oriented x3, responsive, motor strength/tone normal, sensory intact, speech normal Psychiatric: judgement/insight normal, memory normal, mood/affect normal, no suicidal/homicidal ideation Reflexes: 3+ bicep (R), 3+ bicep (L), 3+ tricep (R), 3+ tricep (L), 3+ knee (R) , 3+ knee (L) Skin: normal color, no rash, warm/dry, well hydrated Lymphatic: no adenopathy Medical Decision Making Diagnostic Impression: Primary Impression: Gastritis Qualified Codes: K29.00 - Acute gastritis without bleeding ER Course Hospital Course 58-year-old M presents to ED with epigastric pain. no nausea or vomiting differential diagnosis: gastritis, SBO, cholecystits Clinical course Patient placed on stretcher. On personnel monitor. After initial history, physical exam reveals middle-aged male in no acute distress. Abdomen soft. No guarding or rebound. Vital stable. Patient appears comfortable. Discussed findings with patient. I do not believe patient requires IV access or blood draw. Patient given GI cocktail, Pepcid here. On reassessment feels better. Asking to be discharged. Safely discharged with close outpatient follow-up I feel this is a highly complex case requiring extensive working including EKG/ Rhythm strip, Xray/CT/US, Blood/urine lab work, repeat exams while in ED, and administration of strong opiates/narcotics for pain control, admission to hospital or close patient follow up. Diagnosis - gastritis Stable and discharged to home with prescriptions for Pepcid, Bentyl. Followup with PMD. Return to ED if symptoms recur or worsen Last Vital Signs Date Time Temp Pulse Resp B/P (MAP) Pulse Ox O2 Delivery O2 Flow Rate FiO2 08/17/18 02:49 98.2 89 16 150/80 98 Room Air 98.2 Status: improved Disposition: HOME, SELF-CARE Condition: Stable Scripts Dicyclomine Hcl* (DICYCLOMINE HCL*) 10 Mg Capsule 10 MG PO QID, #20 CAP Prov: Kermit Ray MD 08/17/18 Ranitidine Hcl* (ZANTAC*) 150 Mg Tablet 150 MG ORAL TWICE A DAY, #30 TAB Prov: Kermit Ray MD 08/17/18 Referrals: [facility],REFERRING (PCP) Patient Instructions: Gastritis, Adult, [id number] Kermit Ray MD Aug 17, 2018 03:27
== END 2018-08-17 03:02 | disposition home or self-care (01) ==
LOC: EMR 02:53
DX: K29.00 Acute gastritis without bleeding (principal); R10.13 Epigastric pain; I10 Essential (primary) hypertension; E11.9 Type 2 diabetes mellitus without complications
CPT/HCPCS: 99283

== ENCOUNTER 2019-01-02 07:05 | Emergency (ER) | payer MEDICAID ==
[~2019-01-02] VITALS: Ht 193 cm; Wt 65.8 kg
[~2019-01-02 07:05] MED LIST changes: +DICYCLOMINE HCL10 MG PO; +RANITIDINE HCL150 MG ORAL
[2019-01-02 07:24] VITALS: BP 131/88
--- NOTE | 2019-01-02 07:26 | NUR ---
ED Nurse Note: pt walked in to ER c/o sore throat 8/10 and coughing for 2 weeks. pt sounds congested. lungs sound clear. pt aao x4 and calm and cooperative. pt has not coughed at ER yet. per pt, he got sputum with cough which started yellow and turned to green and lately clear. skin clean and intact.
[2019-01-02] MEDS ORDERED: IBUPROFEN600 MG ORAL (07:45)
--- NOTE | 2019-01-02 07:45 | Emergency Room Report ---
History of Present Illness General Chief Complaint: Sore Throat Source: Patient Present Illness HPI Patient presented short throat for about 2 weeks. No fever. Occasional cough. No exacerbating or limiting factor. He has been using saltwater gargle with minimum relief. Dull pain. He denies any change in voice. Allergies: Uncoded Allergies: Dye (Adverse Reaction, Intermediate, Shortness of Breath, 04/24/13) Patient History Past Medical History: HTN Pertinent Family History: HTN Nursing Documentation-[facility] Past Medical History: No History, Except For Hx Hypertension: Yes Hx Asthma: Yes Hx Diabetes: Yes - type 2 Review of Systems All Other Systems: negative except mentioned in HPI Physical Exam Vital Signs Date Time Temp Pulse Resp B/P (MAP) Pulse Ox O2 Delivery O2 Flow Rate FiO2 01/02/19 07:11 97.9 92 20 131/88 96 01/02/19 07:24 Room Air General Appearance: well appearing, no apparent distress ENT: hearing grossly normal, no angioedema, normal voice Neck: full range of motion, supple Respiratory: no respiratory distress, speaking full sentences Gastrointestinal: non tender, soft Musculoskeletal: normal inspection, back normal Neurologic: normal inspection, alert, oriented x3 Medical Decision Making Diagnostic Impression: Primary Impression: Sore throat ER Course I considered angioedema, pharyngitis, peritonsillar abscess, epiglottitis. The patient has a normal examination There is no other associated symptoms. Patient will be given ibuprofen for pain. Last Vital Signs Date Time Temp Pulse Resp B/P (MAP) Pulse Ox O2 Delivery O2 Flow Rate FiO2 01/02/19 07:24 97.9 80 20 131/88 96 Room Air Disposition: HOME, SELF-CARE Condition: Stable Scripts Ibuprofen* (MOTRIN*) 600 Mg Tablet 600 MG ORAL Q6H PRN for For Pain, #30 TAB Prov: DENI VAZQUEZ 01/02/19 Patient Instructions: Sore Throat DENI VAZQUEZ Jan 02, 2019 07:45
[2019-01-02 07:50] VITALS: BP 115/74
--- NOTE | 2019-01-02 07:50 | NUR ---
ER DISCHARGE NOTE: Patient is cleared to be discharged per ERMD, pt is aox4, on room air, with stable vital signs. pt was given dc and prescription instructions, pt was able to verbalize understanding, pt id band removed. pt is able to ambulate with steady gait. pt took all belongings.
== END 2019-01-02 07:50 | disposition home or self-care (01) ==
LOC: EMR 07:30
DX: J02.9 Acute pharyngitis, unspecified (principal); I10 Essential (primary) hypertension; E11.9 Type 2 diabetes mellitus without complications; J45.909 Unspecified asthma, uncomplicated; Z91.041 Radiographic dye allergy status
CPT/HCPCS: 99282

== ENCOUNTER 2019-10-20 09:48 | Emergency (ER) | payer MEDICAID ==
[~2019-10-20] VITALS: Ht 193 cm; Wt 106.1 kg
[2019-10-20 10:10] VITALS: BP 153/97
--- NOTE | 2019-10-20 10:10 | NUR ---
ED Nurse Note: Patient walked in to ER c/o asthma flare up. Reports that he took his inhaler but it doesnt alleviate the symptoms. No SOB. Breathing even and unlabored. Afebrile. 99% RA. VSS.
[2019-10-20] MEDS ORDERED: Albuterol ud Inhalation HHN ONE (10:15)
[2019-10-20] MEDS ORDERED: Ipratropium 0.02% Inh Soln 2.5ml UD HHN ONE (10:15)
--- NOTE | 2019-10-20 10:35 | NUR ---
ED Nurse Note: RT at bedside for breathing tx.
--- NOTE | 2019-10-20 10:46 | Diagnostic Imaging Report ---
Indication: Shortness of breath Technique: XRAY Chest 1v Comparison: 12/19/2015 Findings: Heart size and mediastinal contours are within normal limits for AP technique. There is no focal airspace consolidation, pneumothorax or pleural effusion. Degenerative changes in the spine. Osseous structures demonstrate no acute abnormality. Impression: No radiographic evidence of acute cardiopulmonary disease.
--- NOTE | 2019-10-20 12:42 | Emergency Room Report ---
History of Present Illness General Chief Complaint: Asthma Source: Patient Present Illness HPI States that over the past few days he has noticed his "asthma acting up." He states that he has a history of asthma. He states that he has noted shortness of breath over the past few days and some intermittent coughing. He denies fever chills. He denies nausea or vomiting. He denies chest pain. He denies sputum production. He has no other complaints.. Allergies: Uncoded Allergies: Dye (Adverse Reaction, Intermediate, Shortness of Breath, 04/24/13) Patient History Past Medical History: see triage record, DM, HTN, asthma Social History: Denies: smoking, alcohol use, drug use Reviewed Nursing Documentation: PMH: Agreed; PSxH: Agreed Nursing Documentation-PMH Past Medical History: No History, Except For Hx Hypertension: Yes Hx Asthma: Yes Hx Diabetes: Yes - type 2 Review of Systems All Other Systems: negative except mentioned in HPI Physical Exam Vital Signs Date Time Temp Pulse Resp B/P (MAP) Pulse Ox O2 Delivery O2 Flow Rate FiO2 10/20/19 10:02 97.7 87 16 153/97 (115) 97 Room Air 10/20/19 10:36 21 Sp02 EP Interpretation: reviewed, normal General Appearance: no apparent distress, alert, GCS 15, non-toxic Head: normocephalic, atraumatic Eyes: bilateral eye normal inspection, bilateral eye PERRL ENT: hearing grossly normal, normal pharynx, no angioedema, normal voice Neck: full range of motion, supple/symm/no masses Respiratory: chest non-tender, lungs clear, normal breath sounds, no respiratory distress, no retraction, no accessory muscle use, speaking full sentences Cardiovascular #1: regular rate, rhythm, no edema Gastrointestinal: normal bowel sounds, non tender, soft, non-distended, no guarding, no rebound Rectal: deferred Musculoskeletal: back normal, normal range of motion, gait/station normal, non- tender Neurologic: alert, motor strength/tone normal, oriented x3, sensory intact, responsive, speech normal Psychiatric: judgement/insight normal, memory normal, mood/affect normal, no suicidal/homicidal ideation Skin: no rash, normal color Medical Decision Making Diagnostic Impression: Primary Impression: Asthma exacerbation ER Course This patient has a clinical presentation consistent with asthma exacerbation. Patient has a history of asthma and feels short of breath. The patient was given albuterol and Atrovent nebulizer treatments. The patient had significant improvement in subjective shortness of breath. I will also treat the patient with a course of prednisone and azithromycin. At this time, the patient is without respiratory distress and has a benign evaluation overall. The patient was given close return precautions and followup instructions. Chest X-Ray Diagnostic Results Chest X-Ray Diagnostic Results : Chest X-Ray Ordered: Yes # of Views/Limited/Complete: 1 View Indication: Shortness of Breath EP Interpretation: Yes Interpretation: no consolidation, no effusion, no pneumothorax, no acute cardiopulmonary disease Impression: No acute disease Electronically Signed by: Diana Benz DO Last Vital Signs Date Time Temp Pulse Resp B/P (MAP) Pulse Ox O2 Delivery O2 Flow Rate FiO2 10/20/19 10:36 77 16 99 Room Air 21 72 16 97 10/20/19 10:10 97.7 153/97 Status: improved Disposition: HOME, SELF-CARE Condition: Improved Referrals: NON PHYSICIAN (PCP) Patient Instructions: Asthma, Adult Diana Benz DO Oct 20, 2019 12:42
[2019-10-20] MEDS ORDERED: PREDNISONE20 MG ORAL (12:43)
[2019-10-20] MEDS ORDERED: ZITHROMAX250 MG ORAL (12:43)
[2019-10-20 13:15] VITALS: BP 153/97
--- NOTE | 2019-10-20 13:15 | NUR ---
ED Nurse Note: Pt cleared by ERMD for discharge. DC instructions/prescription was given and explained to pt and verbalized understanding of teachings. All medical deviecs such as ID band removed. Pt is AAO x4, ambulatory and left with all personal belongings.
== END 2019-10-20 13:15 | disposition home or self-care (01) ==
LOC: EMR 10:32
DX: J45.901 Unspecified asthma with (acute) exacerbation (principal); I10 Essential (primary) hypertension; E11.9 Type 2 diabetes mellitus without complications
CPT/HCPCS: 71045; Z7502; 99284

== ENCOUNTER 2019-11-15 21:44 | Emergency (ER) | payer MEDICAID ==
[~2019-11-15] VITALS: Ht 193 cm; Wt 63.5 kg
[~2019-11-15 21:44] MED LIST changes: +ZITHROMAX250 MG ORAL
[2019-11-15 22:10] VITALS: BP 149/91
[2019-11-15] MEDS ORDERED: AMOXICILLIN500 MG ORAL (22:39)
[2019-11-15] MEDS ORDERED: PROMETHAZINE-D118 ML ORAL (22:39)
[2019-11-15 22:45] VITALS: BP 149/91
--- NOTE | 2019-11-16 05:06 | Emergency Room Report ---
History of Present Illness General Chief Complaint: Upper Respiratory Illness Source: Patient Present Illness HPI 59-year-old male presents ED for evaluation. Complaining of cough for last 2 weeks. Dry. Notes chills. Afebrile in triage. Has used [id number] medication without relief. Denies chest pain. Denies sick contacts or recent travel. No other aggravating relieving factors. Denies any other associated symptoms Allergies: Uncoded Allergies: Dye (Adverse Reaction, Intermediate, Shortness of Breath, 04/24/13) Patient History Past Medical History: DM, HTN, asthma Past Surgical History: none Pertinent Family History: none Social History: Denies: smoking, alcohol use, drug use Immunizations: UTD Reviewed Nursing Documentation: PMH: Agreed; PSxH: Agreed Nursing Documentation-PMH Hx Hypertension: Yes Hx Asthma: Yes Hx Diabetes: Yes Review of Systems All Other Systems: negative except mentioned in HPI Physical Exam Vital Signs Date Time Temp Pulse Resp B/P (MAP) Pulse Ox O2 Delivery O2 Flow Rate FiO2 11/15/19 22:07 98.2 94 16 149/91 (110) 95 Room Air Sp02 EP Interpretation: reviewed, normal General Appearance: no apparent distress, alert, GCS 15, non-toxic Head: normocephalic, atraumatic Eyes: bilateral eye normal inspection, bilateral eye PERRL ENT: hearing grossly normal, normal pharynx, no angioedema, normal voice Neck: full range of motion, supple/symm/no masses Respiratory: chest non-tender, lungs clear, normal breath sounds, speaking full sentences Cardiovascular #1: regular rate, rhythm, no edema Cardiovascular #2: 2+ carotid (R), 2+ carotid (L), 2+ radial (R), 2+ radial (L) , 2+ dorsalis pedis (R), 2+ dorsalis pedis (L) Gastrointestinal: normal bowel sounds, non tender, soft, non-distended, no guarding, no rebound Rectal: deferred Genitourinary: normal inspection, no CVA tenderness Musculoskeletal: back normal, normal range of motion, gait/station normal, non- tender Neurologic: alert, motor strength/tone normal, oriented x3, sensory intact, responsive, speech normal Psychiatric: judgement/insight normal, memory normal, mood/affect normal, no suicidal/homicidal ideation Reflexes: 3+ bicep (R), 3+ bicep (L), 3+ tricep (R), 3+ tricep (L), 3+ knee (R) , 3+ knee (L) Lymphatic: no adenopathy Medical Decision Making Diagnostic Impression: Primary Impression: Atypical pneumonia ER Course Hospital Course 59-year-old male presents ED complaining of cough x2 weeks Differential diagnoses include: URI, pharyngitis, otitis media, asthma Clinical course Patient placed on stretcher. After initial history, physical exam reveals an elderly in no acute distress. Bilateral TM unremarkable. No pharyngeal erythema. No tonsillar exudates. No lymphadenopathy. lungs clear. abdomen soft. I discussed findings with patient. Consideration for atypical pneumonia. Will discharge home with antibiotics. Safe for discharge with close outpatient follow-up. States he has a PMD Diagnosis - atypical pneumonia Stable and discharged home with Rx amoxicillin, promethazine/DM. Instructed to followup with PMD. Return to ED if symptoms recur or worsen Last Vital Signs Date Time Temp Pulse Resp B/P (MAP) Pulse Ox O2 Delivery O2 Flow Rate FiO2 11/15/19 22:45 98.2 16 149/91 95 Room Air 11/15/19 22:10 94 Status: improved Disposition: HOME, SELF-CARE Condition: Stable Scripts D-Methorphan Hb/Prometh Hcl* (PROMETHAZINE-DM SYRUP*) 118 Ml Syrup 5 ML ORAL Q6H PRN for For Cough, #118 ML 0 Refills Prov: Kermit Ray MD 11/15/19 Amoxicillin* (AMOXIL*) 500 Mg Capsule 500 MG ORAL THREE TIMES A DAY, #21 CAP Prov: Kermit Ray MD 11/15/19 Referrals: [facility],REFERRING (PCP) Patient Instructions: Community-Acquired Pneumonia, Adult, Xwes-fw-Aruu Kermit Ray MD Nov 16, 2019 05:06
== END 2019-11-15 22:45 | disposition home or self-care (01) ==
LOC: EMR 22:45
DX: J18.9 Pneumonia, unspecified organism (principal); I10 Essential (primary) hypertension; E11.9 Type 2 diabetes mellitus without complications; Z91.041 Radiographic dye allergy status
CPT/HCPCS: 99282

== ENCOUNTER 2019-12-23 22:17 | Emergency (ER) | payer MEDICAID ==
[~2019-12-23] VITALS: Ht 193 cm; Wt 104.8 kg
[~2019-12-23 22:17] MED LIST changes: +LEVAQUIN750 MG ORAL; +PHENERGAN6.25 MG/5 ORAL; +PROMETHAZINE-D118 ML ORAL
[2019-12-23] MEDS ORDERED: VENTOLIN HFA18 GM INH (22:25)
[2019-12-23 22:27] VITALS: BP 150/80
--- NOTE | 2019-12-23 22:28 | NUR ---
ED Nurse Note: Patient walked in to ER c/o SOB, astma attack since yesterday. Stated his meds were not helpfull. Patient presented calm, with non-labore breathing, audible whezzes present, AAO x4, VSS at this time.
[2019-12-23] MEDS ORDERED: PREDNISONE20 MG ORAL (23:19)
--- NOTE | 2019-12-23 23:19 | Emergency Room Report ---
History of Present Illness General Chief Complaint: Asthma Source: Patient Present Illness [facility] This is a 59-year-old male with history of asthma. He presents with chief complaint of cough and shortness of breath with wheezing. He denies any fever chills. Onset was yesterday. Was here 3 weeks ago and was diagnosed with pneumonia placed on antibiotics. Better with his inhaler. No fever chills but no nausea no vomiting. Is nonproductive in nature. Worse with exertion and lying flat. Allergies: Uncoded Allergies: Dye (Adverse Reaction, Intermediate, Shortness of Breath, 04/24/13) Patient History Past Medical History: see triage record, old chart reviewed, asthma Past Surgical History: none Pertinent Family History: none Social History: Denies: smoking Immunizations: other Reviewed Nursing Documentation: PMH: Agreed; PSxH: Agreed Nursing Documentation-PMH Hx Hypertension: Yes Hx Asthma: Yes Hx Diabetes: Yes Review of Systems Eye: Denies: eye pain, blurred vision ENT: Denies: ear pain, nose congestion, throat swelling Respiratory: Reports: cough; Denies: shortness of breath Cardiovascular: Denies: chest pain, palpitations Gastrointestinal: Denies: abdominal pain, diarrhea, nausea, vomiting Musculoskeletal: Denies: back pain, joint pain Skin: Denies: rash Neurological: Denies: headache, numbness Endocrine: Denies: increased thirst, increased urine Hematologic/Lymphatic: Denies: easy bruising All Other Systems: negative except mentioned in HPI Physical Exam Vital Signs Date Time Temp Pulse Resp B/P (MAP) Pulse Ox O2 Delivery O2 Flow Rate FiO2 12/23/19 22:22 98.4 99 17 150/80 (103) 97 12/23/19 22:27 Room Air vitals with high blood pressure Sp02 EP Interpretation: reviewed, normal General Appearance: well appearing, no apparent distress, alert Head: normocephalic, atraumatic Eyes: bilateral eye PERRL, bilateral eye EOMI ENT: hearing grossly normal, normal pharynx Neck: full range of motion, supple, no meningismus Respiratory: chest non-tender, lungs clear, normal breath sounds Cardiovascular #1: regular rate, rhythm, no murmur Gastrointestinal: normal bowel sounds, non tender, no mass, no organomegaly, no bruit, non-distended Musculoskeletal: back normal, normal range of motion, gait/station normal Psychiatric: mood/affect normal Medical Decision Making Diagnostic Impression: Primary Impression: Upper respiratory infection, viral ER Course Patient with upper respiratory infection. No evidence of pneumonia. Chest x- ray improved from last time. Will discharge home. Chest X-Ray Diagnostic Results Chest X-Ray Diagnostic Results : Chest X-Ray Ordered: Yes # of Views/Limited/Complete: 1 View Indication: Shortness of Breath EP Interpretation: Yes Interpretation: no consolidation, no effusion, no pneumothorax, no acute cardiopulmonary disease Impression: No acute disease Electronically Signed by: Martir Hanson MD Last Vital Signs Date Time Temp Pulse Resp B/P (MAP) Pulse Ox O2 Delivery O2 Flow Rate FiO2 12/23/19 22:27 99 17 Room Air 12/23/19 22:27 98.4 150/80 97 Status: improved Disposition: HOME, SELF-CARE Condition: Stable Scripts Prednisone* (PREDNISONE*) 20 Mg Tablet 40 MG ORAL DAILY, #10 TAB Prov: Martir Hanson MD 12/23/19 Patient Instructions: Asthma, Adult Additional Instructions: Follow-up with your doctor in 7 days. Return if symptoms worsen. Martir Hanson MD Dec 23, 2019 23:19
--- NOTE | 2019-12-23 23:20 | Diagnostic Imaging Report ---
EXAM: XR Chest, 1 View CLINICAL HISTORY: COUGH TECHNIQUE: Frontal view of the chest. COMPARISON: 11/30/2019 FINDINGS: Lungs: Redemonstration of linear opacities in the right lower lobe. Pleural space: No acute findings Heart: No cardiomegaly. Bones/joints: No acute findings. IMPRESSION: Redemonstration of linear opacities in the right lower lobe, possibly infectious or inflammatory process.
[2019-12-23 23:23] VITALS: BP 150/80
--- NOTE | 2019-12-23 23:23 | NUR ---
ER DISCHARGE NOTE: Patient is cleared to be discharged per ERMD, pt is aox4, on room air, with stable vital signs. pt was given dc and prescription instructions, pt was able to verbalize understanding, pt id band and iv site removed without complications. pt is able to ambulate with steady gait. pt took all belongings.
== END 2019-12-23 23:23 | disposition home or self-care (01) ==
LOC: EMR 22:36
DX: J06.9 Acute upper respiratory infection, unspecified (principal); E11.9 Type 2 diabetes mellitus without complications; I10 Essential (primary) hypertension
CPT/HCPCS: 71045; Z7502; 99283

== ENCOUNTER 2020-02-08 12:09 | Emergency (ER) | payer MEDICAID ==
[~2020-02-08] VITALS: Ht 193 cm; Wt 106.6 kg
[~2020-02-08 12:09] MED LIST changes: +VENTOLIN HFA18 GM INH
[2020-02-08 12:11] VITALS: BP 133/95
--- NOTE | 2020-02-08 12:26 | Emergency Room Report ---
History of Present Illness General Chief Complaint: Asthma Source: Patient Present Illness HPI Patient is a 60-year-old male who presents after increased difficulty with breathing. Reports having prior history of asthma. Reports having increased difficulty with breathing. Denies any leg pain or swelling. Prior history of steroid use several months ago but none recently. Reports having increased difficulty with respirations. He denies any chest discomfort. He reports using his inhaler this morning. Had onset of symptoms several days ago. Denies any leg pain or swelling. Denies any vomiting or diarrhea. Denies any cough. Allergies: Uncoded Allergies: Dye (Adverse Reaction, Intermediate, Shortness of Breath, 04/24/13) COVID-19 Screening Contact w/high risk pt: No Recent Travel to affected area: No Experienced COVID-19 symptoms?: No Patient History Past Medical History: see triage record Reviewed Nursing Documentation: PMH: Agreed; PSxH: Agreed Nursing Documentation-PM Past Medical History: No History, Except For Hx Hypertension: Yes Hx Asthma: Yes Hx Diabetes: Yes Review of Systems All Other Systems: negative except mentioned in HPI Physical Exam Vital Signs Date Time Temp Pulse Resp B/P (MAP) Pulse Ox O2 Delivery O2 Flow Rate FiO2 02/08/20 12:11 97.7 97 16 133/95 (108) 99 Room Air Sp02 EP Interpretation: reviewed, normal General Appearance: normal inspection, well appearing, no apparent distress, alert, GCS 15 Head: atraumatic ENT: normal ENT inspection, hearing grossly normal, normal voice Neck: normal inspection, full range of motion, supple, no bony tend Respiratory: normal inspection, lungs clear, normal breath sounds, no respiratory distress, no retraction, no wheezing Cardiovascular #1: regular rate, rhythm, no edema Gastrointestinal: normal inspection, normal bowel sounds, non tender, soft, no guarding, no hernia Genitourinary: no CVA tenderness Musculoskeletal: normal inspection, back normal, normal range of motion Neurologic: alert, motor strength/tone normal, furnace roaster III-XII nml as tested, oriented x3, responsive, speech normal, normal inspection Psychiatric: normal inspection, judgement/insight normal, mood/affect normal Medical Decision Making Diagnostic Impression: Primary Impression: Asthma exacerbation Additional Impression: Chest pain ER Course Patient presented for chest pain. Differential diagnosis includes not limited to pneumonia, bronchitis, coronavirus infection, pulmonary embolism, unstable angina among others. X-ray imaging was ordered due to patient's prior history. EKG was also ordered. EKG interpreted by me showed normal sinus rhythm without acute ST changes. There was noted some T wave inversions. Patient does not have any active chest pain at this time. Patient was advised to seek outpatient cardiology evaluation. He appears to be stable for outpatient evaluation. He was advised to return if worse. He is given prescription for oral steroids as well as albuterol. The patient is advised to follow up with primary care doctor in 1-2 days. Patient is advised to return if any worsening condition or if any changes in status that are concerning. This report is dictated with [employer] hop worker software which may occasionally lead to discrepancies related to use of this software. EKG Diagnostic Results Rate: normal Rhythm: NSR ST Segments: no acute changes Last Vital Signs Date Time Temp Pulse Resp B/P (MAP) Pulse Ox O2 Delivery O2 Flow Rate FiO2 02/08/20 12:18 97 16 Room Air 02/08/20 12:11 97.7 133/95 (108) 99 Status: improved Disposition: HOME, SELF-CARE Condition: Stable Scripts Albuterol Sulfate (VENTOLIN HFA) 18 Gm Hfa.aer.ad 1 PUFF INH EVERY 6 HOURS, #18 GM 0 Refills Prov: Wilmar Beavers MD 02/08/20 Prednisone* (PREDNISONE*) 20 Mg Tablet 40 MG ORAL DAILY, #10 TAB Prov: Wilmar Beavers MD 02/08/20 Wilmar Beavers MD Feb 08, 2020 12:26
--- NOTE | 2020-02-08 12:42 | NUR ---
ED Nurse Note: Radiology in the tent for CXR.
[2020-02-08] MEDS ORDERED: PREDNISONE20 MG ORAL (13:10)
[2020-02-08] MEDS ORDERED: VENTOLIN HFA18 GM INH (13:10)
[2020-02-08 13:18] VITALS: BP 125/88
--- NOTE | 2020-02-08 13:18 | NUR ---
ER DISCHARGE NOTE: Pt was seen due to asthma exacerbation. Patient is cleared to be discharged per ERMD, pt is aox4, on room air, with stable vital signs. pt was given dc and prescription instructions, pt was able to verbalize understanding, pt id band removed. pt is able to ambulate with steady gait. pt took all belongings.
--- NOTE | 2020-02-08 13:33 | Diagnostic Imaging Report ---
Indication: Shortness of breath Technique: One view of the chest Comparison: 12/23/2019 Findings: Linear opacities in the right perihilar region are stable, likely reflect an area of scarring. There is some atelectasis at the left lung base. Hazy basilar opacities most likely reflect overlapping soft tissue shadows, although faint infiltrate at the left lung base is possible Impression: Hazy basilar opacities, likely due to overlying soft tissue but infiltrate, particularly in the left lung base, not completely excludable Left basilar atelectasis Findings previously discussed by phone with Dr. Beavers in the emergency room
== END 2020-02-08 13:18 | disposition home or self-care (01) ==
LOC: EMR 12:46
DX: J45.901 Unspecified asthma with (acute) exacerbation (principal); R07.9 Chest pain, unspecified; E11.9 Type 2 diabetes mellitus without complications; I10 Essential (primary) hypertension
CPT/HCPCS: 71045; 93005; J7512; Z7502; 99283